=== PATIENT | female | born 2000 | race Caucasian/White ===

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

== ENCOUNTER 2019-02-26 23:38 | Emergency (ER) | payer OTHER, SELFPAY ==
--- NOTE | 2019-02-26 23:55 | RAD ---
CHEST TWO VIEWS: 02/26/19 HISTORY: Cough. FINDINGS: The heart size is within normal limits. The lungs are clear. No confluent pneumonia, overt edema, ple ural effusion or other acute process. IMPRESSION: No acute intrathoracic disease. POS: [facility]
[2019-02-27] MEDS ORDERED: Acetaminophen/Codeine 30-300mg Tablet ONE (00:18)
== END 2019-02-27 00:20 | disposition home or self-care (01) ==
LOC: ERS 23:38
DX: J11.1 Influenza due to unidentified influenza virus with other respiratory manifestations (principal); I10 Essential (primary) hypertension; F41.9 Anxiety disorder, unspecified; F32.9 Major depressive disorder, single episode, unspecified; Z79.899 Other long term (current) drug therapy
CPT/HCPCS: 71046

== ENCOUNTER 2020-04-27 18:09 | Emergency (ER) | payer SELFPAY | END 2020-04-27 20:24 | disposition left against medical advice (07) | LOC: ERS 18:09 | DX: Z53.21 Procedure and treatment not carried out due to patient leaving prior to being seen by health care provider (principal) ==